=== PATIENT | male | born 1980 | race African-American/Black ===

== ENCOUNTER 2018-10-18 06:02 | Emergency (ER) | payer OTHER ==
[~2018-10-18] VITALS: Ht 193 cm; Wt 88.5 kg
[2018-10-18 06:18] VITALS: BP_SYST 148
--- NOTE | 2018-10-18 06:30 | NUR ---
Patient to ER bed 8 to gown for evaluation. Side rails up.
--- NOTE | 2018-10-18 06:32 | NUR ---
Patient AOx4, presents to ER with complaint of SOB, chest tightness, wheezing, and cough since mid day yesterday. Patient states he feels that the SOB is triggering the cough. Patient medicated with an inhailer and was effective initially but now says he cant breathe. Patient has hx of asthma and has been told he is in early stages of COPD. Patient is a smoker. O2 sat 90% RA.
--- NOTE | 2018-10-18 06:42 | NUR ---
MIRIAM Alcantara at bedside for medical evaluation.
--- NOTE | 2018-10-18 06:53 | NUR ---
RT at bedside to administer breathing treatment.
[2018-10-18] MEDS ORDERED: LevALBUTEROL HCL 1.25 MG/0.5 ML *CONC.* VIAL.NEB (XOPENEX CONC.) INH ONE ×2 (07:00→07:30)
[2018-10-18] MEDS ORDERED: IPRATROPIUM BROM 0.5 MG/2.5 ML VIAL.NEB (ATROVENT) IH ONE (07:00)
[2018-10-18] MEDS ORDERED: PREDNISONE 20 MG TABLET PO ONE (07:00)
--- NOTE | 2018-10-18 07:25 | NUR ---
AT BEDSIDE AND RE-ASSESSED PATIENT. PATIENT SITTING UP ON BED. AA&Ox4. RESPIRATIONS EVEN AND UNLABORED. SPEAKING FULL SENTENCES. ALL LUNG HALL NOTED WITH EXPIRATORY WHEEZES. PT STATES, "I FEEL MUCH BETTER AFTER THE MEDICATIONS." DENIES OF ANY CHEST PAIN OR SOB. PT IN NO ACUTE DISTRESS. WILL CONTINUE TO MONITOR.
--- NOTE | 2018-10-18 07:35 | NUR ---
RT AT BEDSIDE ADMINISTERING BREATHING TREATMENT. PT TOLERATING WELL.
[2018-10-18 08:25] VITALS: BP_SYST 146
--- NOTE | 2018-10-18 08:25 | NUR ---
Patient given written and verbal discharge instructions and verbalizes understanding. ER MD discussed with patient the results and treatment provided. Patient in stable condition. ID arm band removed. Rx of PREDNISONE AND ALBUTEROL given. Patient educated on pain management and to follow up with PMD. Pain Scale 0/10. Opportunity for questions provided and answered. Medication side effect fact sheet provided. PATIENT IN NO ACUTE DISTRESS. NO SOB. NOTED WITH STEADY GAIT.
== END 2018-10-18 08:25 | disposition home or self-care (01) ==
LOC: SED 06:02
DX: J45.901 Unspecified asthma with (acute) exacerbation (principal)
CPT/HCPCS: 94640; 99284; J7512; J7612

== ENCOUNTER 2019-01-27 00:59 | Emergency (ER) | payer OTHER ==
[~2019-01-27] VITALS: Ht 193 cm; Wt 88.5 kg
--- NOTE | 2019-01-27 01:00 | NUR ---
Patient to ER bed 8 to gown for evaluation. Side rails up.
[2019-01-27 01:15] VITALS: BP_SYST 163
--- NOTE | 2019-01-27 01:15 | NUR ---
Pt is a 38 y/o male w/ hx of asthma and COPD who comes into the ER for SOB w/ chest tightness, wheezing, and ocassional cough that he said started this morning. Pt states he tried to use his albuterol inhaler and nebulizer but he did not get any relief from it. Pt also states that he's requesting a refill for both his medications. Pt doesn't verbalize any other needs at this time and denies any fever, chills, chest pain, sore throat, or n/v/d. Will continue to monitor pt.
--- NOTE | 2019-01-27 01:23 | NUR ---
ER at bedside examining patient.
[2019-01-27] MEDS ORDERED: methylPREDNISolone SOD SUCC/PF 62.5 MG/ML VIAL IVP ONE (01:30)
[2019-01-27] MEDS ORDERED: IPRATROPIUM/ALBUTEROL SULFATE 3 ML AMPUL.NEB (DUONEB) INH ONE (01:30)
[2019-01-27] MEDS ORDERED: methylPREDNISolone SOD SUCC/PF 62.5 MG/ML VIAL IM ONE (02:00)
[2019-01-27 02:30] VITALS: BP_SYST 163
--- NOTE | 2019-01-27 02:30 | NUR ---
Patient given written and verbal discharge instructions and verbalizes understanding. ER MD Dr. Diamond discussed with patient the results and treatment provided. Patient in stable condition. ID arm band removed. IV catheter removed intact and dressing applied, no active bleeding. Rx of albuterol and predisone given. Patient educated on pain management and to follow up with PMD. Pain Scale 0/10. Opportunity for questions provided and answered. Medication side effect fact sheet provided.
== END 2019-01-27 02:30 | disposition home or self-care (01) ==
LOC: SED 00:59
DX: J45.901 Unspecified asthma with (acute) exacerbation (principal); J44.9 Chronic obstructive pulmonary disease, unspecified; R03.0 Elevated blood-pressure reading, without diagnosis of hypertension
CPT/HCPCS: 71045; 96372; 99283; J2930; J7620

== ENCOUNTER 2019-03-23 20:49 | Emergency (ER) | payer OTHER ==
[~2019-03-23] VITALS: Ht 193 cm; Wt 81.6 kg
[2019-03-23 20:52] VITALS: BP_SYST 163
[2019-03-23] MEDS ORDERED: IPRATROPIUM/ALBUTEROL SULFATE 3 ML AMPUL.NEB (DUONEB) INH ONE (21:00)
[2019-03-23] MEDS ORDERED: methylPREDNISolone SOD SUCC/PF 62.5 MG/ML VIAL IVP ONE (21:00)
[2019-03-23] MEDS ORDERED: IPRATROPIUM/ALBUTEROL SULFATE 3 ML AMPUL.NEB (DUONEB) ONE (21:13)
[2019-03-23 21:24] LABS: BASOPHILS # (AUTO) 0.1 K/uL (0.0-0.2); BASOPHILS % (AUTO) 1.2 % (0.0-2.0); EOSINOPHILS # (AUTO) 1.3 K/uL (0.0-0.4); EOSINOPHILS % (AUTO) 13.8 % (0.0-4.0); HEMATOCRIT 45.9 % (36-54); HEMOGLOBIN 15.5 g/dL (14.0-18.0); LYMPHOCYTES # (AUTO) 2.8 K/uL (1.0-5.5); LYMPHOCYTES % (AUTO) 29.6 % (20.5-51.5); MEAN CORPUSCULAR HEMOGLOBIN 31 pg (27-31); MEAN CORPUSCULAR HGB CONC 34 % (32-36); MEAN CORPUSCULAR VOLUME 91 fL (79.0-98.0); MONOCYTES # (AUTO) 0.9 K/uL (0.0-1.0); MONOCYTES % (AUTO) 9.1 % (1.7-9.3); NEUTROPHILS # (AUTO) 4.4 K/uL (1.8-7.7); NEUTROPHILS % (AUTO) 46.3 % (40.0-70.0); PLATELET COUNT (AUTO) 289 K/uL (130-430); RED BLOOD CELL COUNT(AUTO) 5.06 MIL/uL (4.2-6.2); RED CELL DISTRIBUTION WIDTH 12.8 % (9.0-15.0); WHITE BLOOD COUNT (AUTO) 9.5 K/uL (4.8-10.8)
[2019-03-23 21:35] LABS: CALCIUM 8.9 mg/dL (8.4-11.0); CREATININE 1.17 mg/dL (0.55-1.30); POTASSIUM 3.7 mmol/L (3.5-5.1)
[2019-03-23 21:42] LABS: ALBUMIN 3.4 g/dL (3.4-4.8); TOTAL BILIRUBIN 0.5 mg/dL (0.0-1.0)
[2019-03-23 23:18] VITALS: BP_SYST 140
== END 2019-03-23 23:17 | disposition home or self-care (01) ==
LOC: SED 20:49
DX: J45.901 Unspecified asthma with (acute) exacerbation (principal)
CPT/HCPCS: 36415; 71045; 80053; 85025; 94640; 96374; 99284; J2930; J7620

== ENCOUNTER 2019-11-10 03:15 | Inpatient (IN) | payer OTHER ==
[~2019-11-10] VITALS: Ht 193 cm; Wt 84.8 kg
--- NOTE | 2019-11-10 03:15 | NUR ---
Placed in room 6 . Placed on secured entrance monitor, blood pressure machine and pulse oximeter. To gown for exam. Side rails up.
[2019-11-10 03:17] VITALS: BP_SYST 168
--- NOTE | 2019-11-10 03:49 | NUR ---
# 2 gauge angiocath placed to LEFT AC. Use of asceptic technique. Opsite placed over site. Blood return noted. Blood for lab drawn from site. Flushed with 10 cc of normal saline. No evidence of infiltration noted. Patient tolerated well. Addendum: 11/10/19 at 0644 by SDEDPR # 20
--- NOTE | 2019-11-10 03:50 | NUR ---
ER at bedside examining patient.
[2019-11-10] MEDS ORDERED: IPRATROPIUM BROM 0.5 MG/2.5 ML VIAL.NEB (ATROVENT) INH ONE (04:00)
[2019-11-10] MEDS ORDERED: PREDNISONE 20 MG TABLET PO ONE (04:00)
[2019-11-10] MEDS ORDERED: ALBUTEROL SULFATE 0.083% 2.5 MG/3 ML VIAL.NEB INH ONE ×2 (04:00→05:45)
[2019-11-10] MEDS ORDERED: MAGNESIUM SULFATE 50 ML IV ONE (04:15)
[2019-11-10] MEDS ORDERED: methylPREDNISolone SOD SUCC/PF 62.5 MG/ML VIAL IVP ONE (04:15)
--- NOTE | 2019-11-10 04:57 | NUR ---
PT STS FEELING BETTER.
--- NOTE | 2019-11-10 05:20 | NUR ---
NOTED PT STILL WHEEZING AND USING ACCESS MUSCLE.
--- NOTE | 2019-11-10 05:25 | NUR ---
DR GUZMAN RE-EVAL PT AT THE BEDSIDE.
[2019-11-10] MEDS ORDERED: ALBU8.5H8 INH ×2 (05:31→05:53)
--- NOTE | 2019-11-10 05:45 | NUR ---
Leon mccall in [facility] - 11/10/19 at 0554 by SDEDPR PT PLACED ON BIPAP BY RT PER DR GUZMAN.
[2019-11-10] MEDS ORDERED: IPRA4AER INH (05:53)
[2019-11-10] MEDS ORDERED: BUDE0.25 IH (05:53)
--- NOTE | 2019-11-10 05:54 | NUR ---
RT AT THE BEDSIDE FOR IVAN ESPOSITO.
--- NOTE | 2019-11-10 05:57 | NUR ---
Patient will be admitted to care of Dr. Archuleta. Admitted to Telemetry unit. Will go to room 108 C. Belongings list completed. Complete and up to date summary report printed. SBAR report to be given at bedside with opportunity for questions.
--- NOTE | 2019-11-10 05:58 | NUR ---
Transfer to Telemetry via ACLS protocol. Licensed nurse present. IV present no signs or symptoms of infiltration.
[2019-11-10] MEDS: methylPREDNISolone SOD SUCC/PF 62.5 MG/ML VIAL IVP SCH ×3 (06:00→22:05)
--- NOTE | 2019-11-10 06:07 | NUR ---
ADMIT NOTE Received pt from ER to the floor with a diagnosis of copd exacerbation. Admission process initiated. patient oriented to pain management, safety and call light-teach back done.
[2019-11-10 06:24] VITALS: BP_SYST 135
--- NOTE | 2019-11-10 06:25 | NUR ---
ADMITTED A 39 YEAR OLD MALE WHO WAS BROUGHT IN FROM THE ER WITH AN ADMITTING DIAGNOSIS OF COPD EXACERBATION UNDER THE SERVICE OF . PLACED IN BED 108-C. PT.IS ALERT,ORIENTED,AMBULATORY. AFEBRILE, NOT IN ACUTE DISTRESS. VERBALIZED RELIEF OF SOB. WITH HEPLOCK TO THE LEFT AC. INTACT. SAO2=99% ON RA. SINUS RHYTHM AT 90'S/MINUTE ON THE MONITOR. VS STABLE, WILL CONTINUE TO MONITOR. NEEDS ATTENDED.
[2019-11-10 06:31] LABS: BASOPHILS # (AUTO) 0.1 K/uL (0.0-0.2); BASOPHILS % (AUTO) 1.1 % (0.0-2.0); EOSINOPHILS # (AUTO) 0.7 K/uL (0.0-0.4); EOSINOPHILS % (AUTO) 7.9 % (0.0-4.0); HEMATOCRIT 44.3 % (36-54); HEMOGLOBIN 15.2 g/dL (14.0-18.0); LYMPHOCYTES # (AUTO) 1.1 K/uL (1.0-5.5); LYMPHOCYTES % (AUTO) 11.7 % (20.5-51.5); MEAN CORPUSCULAR HEMOGLOBIN 32 pg (27-31); MEAN CORPUSCULAR HGB CONC 34 % (32-36); MEAN CORPUSCULAR VOLUME 93 fL (79.0-98.0); MONOCYTES # (AUTO) 0.3 K/uL (0.0-1.0); MONOCYTES % (AUTO) 3.8 % (1.7-9.3); NEUTROPHILS # (AUTO) 6.8 K/uL (1.8-7.7); NEUTROPHILS % (AUTO) 75.5 % (40.0-70.0); PLATELET COUNT (AUTO) 222 K/uL (130-430); RED BLOOD CELL COUNT(AUTO) 4.79 MIL/uL (4.2-6.2); RED CELL DISTRIBUTION WIDTH 13.3 % (9.0-15.0)
[2019-11-10 06:34] LABS: CALCIUM 8.8 mg/dL (8.4-11.0); CREATININE 1.1 mg/dL (0.55-1.30); POTASSIUM 4.3 mmol/L (3.5-5.1)
--- NOTE | 2019-11-10 07:10 | NUR ---
ENDORSED CARE TO SHEELA RN STABLE.
[2019-11-10 07:45] VITALS: BP_SYST 124
--- NOTE | 2019-11-10 07:45 | NUR ---
INITIAL ROUNDS Received pt AAOx4, no s/s resp distress, no c/o pain or discomfort. Plan of care for the day reviewed with pt-pt verbalized his understanding. Pain management, disease process, smoking cessation, skin and safety discussed-teach back done. Vall light within reach.
[2019-11-10] MEDS: IPRATROPIUM/ALBUTEROL SULFATE 3 ML AMPUL.NEB (DUONEB) INH SCH ×5 (07:58→23:00)
[2019-11-10 10:57] VITALS: BP_SYST 124
--- NOTE | 2019-11-10 11:25 | NUR ---
CONSULTATION PAGED/CALLED Reason for Consultation: [] COPD Person Who was Notified: [] LEFT A VOICE MESSAGE Consulting Physician: [] DR FORD Pile Operator Specialty: [] PULMO Ordering Physician: [] DR JOSEPH Addendum: 11/10/19 at [address]/ PERSON NOTIFIED: BAILEE RETURNED THE CALL
--- NOTE | 2019-11-10 12:45 | NUR ---
ROUNDS/MD Pt sitting up in bed with no s/s resp distress, no c/o pain or discomfort. Rounded with Dr. Archuleta, orders given for Levaquin-awaiting pharmacy to bring the medication. Needs met, call light within reach.
[2019-11-10] MEDS: LEVOFLOXACIN 500 MG/D5W 100 ML IV SCH (14:35)
[2019-11-10 16:35] VITALS: BP_SYST 122
--- NOTE | 2019-11-10 18:47 | NUR ---
CLOSING NOTE Pt sitting up in bed watching television with no s/s resp distress, no c/o shortness of breath, no c/o pain or discomfort. Needs met, call light within reach.
--- NOTE | 2019-11-10 19:30 | NUR ---
CHANGE OF SHIFT; pt. awake, alert ,getting his breathing treatment, RT at bedside. pt. with visitor. no shortness of breath. on sitting position. call light at bedside. will reassess later.
[2019-11-10] MEDS: BUDESONIDE 0.5 MG/2 ML AMPUL.NEB INH SCH (19:45)
--- NOTE | 2019-11-10 20:00 | NUR ---
NOTES: pt. on room air. VS checked, BP slightly high , will recheck again later. on ekg monitor and shows sinus rhythm. moves all extremities. IV lock on left ac. instructed to call if help needed and verbalized understanding. wants door closed.
[2019-11-10 20:45] VITALS: BP_SYST 153
--- NOTE | 2019-11-10 22:15 | NUR ---
NOTES: pt. remains awake talking to his cell phone. due medication given as scheduled. no complaints noted.
--- NOTE | 2019-11-11 00:01 | NUR ---
NOTES: pt. tv still on, condition unchanged.
[2019-11-11 01:30] VITALS: BP_SYST 140
--- NOTE | 2019-11-11 01:30 | NUR ---
NOTES: pt. accidentally push the nurse button, checked and was asleep, no complaints noted. repositioned self for comfort.
[2019-11-11] MEDS: IPRATROPIUM/ALBUTEROL SULFATE 3 ML AMPUL.NEB (DUONEB) INH SCH ×4 (03:50→15:11)
--- NOTE | 2019-11-11 04:00 | NUR ---
NOTES: pt. been sleeping. no acute distress. cardiac pattern been sinus rhythm. call light within reach.
--- NOTE | 2019-11-11 06:00 | NUR ---
NOTES: pt. awakened for medication. no complaints noted. IV lock [patent and flushing good.
[2019-11-11] MEDS: methylPREDNISolone SOD SUCC/PF 62.5 MG/ML VIAL IVP SCH ×2 (06:19→14:44)
--- NOTE | 2019-11-11 06:45 | NUR ---
CLOSING NOTES; pt. went back to sleep. needs attended. no shortness of breath. due breathing treatment @ 0700. for further observation. call light within reach.
[2019-11-11] MEDS: BUDESONIDE 0.5 MG/2 ML AMPUL.NEB INH SCH (07:04)
[2019-11-11 07:23] LABS: BASOPHILS % (AUTO) 0.2 % (0.0-2.0); HEMATOCRIT 49.3 % (36-54); HEMOGLOBIN 16.7 g/dL (14.0-18.0); LYMPHOCYTES # (AUTO) 0.8 K/uL (1.0-5.5); LYMPHOCYTES % (AUTO) 5.4 % (20.5-51.5); MEAN CORPUSCULAR HEMOGLOBIN 32 pg (27-31); MEAN CORPUSCULAR HGB CONC 34 % (32-36); MEAN CORPUSCULAR VOLUME 93 fL (79.0-98.0); MONOCYTES # (AUTO) 0.5 K/uL (0.0-1.0); MONOCYTES % (AUTO) 3.8 % (1.7-9.3); NEUTROPHILS # (AUTO) 12.6 K/uL (1.8-7.7); NEUTROPHILS % (AUTO) 90.6 % (40.0-70.0); PLATELET COUNT (AUTO) 245 K/uL (130-430); RED BLOOD CELL COUNT(AUTO) 5.29 MIL/uL (4.2-6.2); RED CELL DISTRIBUTION WIDTH 13.4 % (9.0-15.0); WHITE BLOOD COUNT (AUTO) 13.9 K/uL (4.8-10.8)
[2019-11-11 07:34] LABS: ALBUMIN 3.9 g/dL (3.4-4.8); CREATININE 0.92 mg/dL (0.55-1.30); POTASSIUM 4.3 mmol/L (3.5-5.1); TOTAL BILIRUBIN 0.9 mg/dL (0.0-1.0)
[2019-11-11 08:00] VITALS: BP_SYST 162
[2019-11-11] MEDS: LEVOFLOXACIN 500 MG/D5W 100 ML IV SCH (08:44)
[2019-11-11 12:00] VITALS: BP_SYST 146
[2019-11-11] MEDS ORDERED: DOXY100T2 PO (14:55)
[2019-11-11] MEDS ORDERED: VITD2000 PO (15:00)
[2019-11-11] MEDS ORDERED: ATOR20TA64 PO (15:00)
[2019-11-11] MEDS ORDERED: LOSA50TA3 PO (15:00)
[2019-11-11 16:07] VITALS: BP_SYST 148
--- NOTE | 2019-11-11 16:55 | NUR ---
Patient received written RX's from attending MD.and given education on smoking cessation and information on new medications. patient given opportunity to ask questions and denies additional questions at this time. He ambulated to exit per patient request with escort. He denies dizziness, blurry vision, chest pain at this time.
== END 2019-11-11 16:50 | disposition home or self-care (01) | DRG 192 ==
LOC: SED 03:15 → STU 05:33
PROVIDERS: ADMIT Internal Medicine; ATTEND Internal Medicine
DX: J44.1 Chronic obstructive pulmonary disease with (acute) exacerbation (principal); J44.0 Chronic obstructive pulmonary disease with (acute) lower respiratory infection; Z87.09 Personal history of other diseases of the respiratory system; J20.9 Acute bronchitis, unspecified; F17.210 Nicotine dependence, cigarettes, uncomplicated; D72.1 Eosinophilia; E78.5 Hyperlipidemia, unspecified; I10 Essential (primary) hypertension; Z79.899 Other long term (current) drug therapy
CPT/HCPCS: 36415; 71045; 80048; 80053; 80061; 82306; 82785; 85025; 94640; 94760; 96365; 96375; 99285; G0378; J1956; J2930; J3475; J7613; J7620; J7626

== ENCOUNTER 2019-11-15 19:58 | Emergency (ER) | payer OTHER ==
[~2019-11-15] VITALS: Ht 193 cm; Wt 90.7 kg
[~2019-11-15 19:58] MED LIST: ALBU8.5H8 INH; ATOR20TA64 PO; BUDE0.25 IH; DOXY100T2 PO; IPRA4AER INH; LOSA50TA3 PO; VITD2000 PO
[2019-11-15 20:00] VITALS: BP_SYST 136
--- NOTE | 2019-11-15 20:04 | NUR ---
Patient triaged and placed in waiting room. VSS and patient appears in no acute distress at this time. Accompanied by SELF, awaiting available bed, and MD notified of need for MSE.
[2019-11-15 21:50] LABS: BASOPHILS # (AUTO) 0.1 K/uL (0.0-0.2); BASOPHILS % (AUTO) 0.9 % (0.0-2.0); EOSINOPHILS # (AUTO) 1.1 K/uL (0.0-0.4); EOSINOPHILS % (AUTO) 8.6 % (0.0-4.0); HEMATOCRIT 42.1 % (36-54); HEMOGLOBIN 14.3 g/dL (14.0-18.0); LYMPHOCYTES # (AUTO) 2.1 K/uL (1.0-5.5); LYMPHOCYTES % (AUTO) 16.7 % (20.5-51.5); MEAN CORPUSCULAR HEMOGLOBIN 31 pg (27-31); MEAN CORPUSCULAR HGB CONC 34 % (32-36); MEAN CORPUSCULAR VOLUME 93 fL (79.0-98.0); MONOCYTES # (AUTO) 0.7 K/uL (0.0-1.0); MONOCYTES % (AUTO) 5.5 % (1.7-9.3); NEUTROPHILS # (AUTO) 8.7 K/uL (1.8-7.7); NEUTROPHILS % (AUTO) 68.3 % (40.0-70.0); PLATELET COUNT (AUTO) 215 K/uL (130-430); RED BLOOD CELL COUNT(AUTO) 4.55 MIL/uL (4.2-6.2); RED CELL DISTRIBUTION WIDTH 13.1 % (9.0-15.0); WHITE BLOOD COUNT (AUTO) 12.7 K/uL (4.8-10.8)
[2019-11-15 22:27] LABS: CALCIUM 8.2 mg/dL (8.4-11.0); CREATININE 1.24 mg/dL (0.55-1.30); POTASSIUM 3.2 mmol/L (3.5-5.1)
[2019-11-15 22:33] LABS: ALBUMIN 3.4 g/dL (3.4-4.8); TOTAL BILIRUBIN 0.4 mg/dL (0.0-1.0)
--- NOTE | 2019-11-15 23:07 | NUR ---
Patient to ER bed 08 to gown for evaluation. Side rails up. Report given to ROGER Field.
--- NOTE | 2019-11-15 23:10 | NUR ---
Patient came to the ER with complaint of abdominal discomfort. Patient advised he had an episode of emesis at 2200. Patient advised that he had taken an advil this morning and since then, his stomach has been upset. Patient not presenting any signs of acute distress.
[2019-11-15 23:59] LABS: BILIRUBIN,URINE NEGATIVE (NEGATIVE); BLOOD, URINE NEGATIVE (NEGATIVE); CLARITY/URINE CLEAR (CLEAR); COLOR,URINE YELLOW (YELLOW); GLUCOSE,URINE NEGATIVE (NEGATIVE); KETONES,URINE NEGATIVE (NEGATIVE); LEUKOCYTE ESTERASE ,URINE NEGATIVE (NEGATIVE); NITRITE, URINE NEGATIVE (NEGATIVE); PROTEIN URINE NEGATIVE (NEGATIVE); UROBILINOGEN,URINE 0.2 (0.2-1.0)
--- NOTE | 2019-11-16 | NUR ---
ER Dr. Krueger at bedside examining patient.
--- NOTE | 2019-11-16 00:25 | NUR ---
Patient given written and verbal discharge instructions and verbalizes understanding. ER MD discussed with patient the results and treatment provided. Patient in stable condition. IV catheter removed intact and dressing applied, no active bleeding. Rx of Pepcid given. Patient educated on pain management and to follow up with PMD. Pain Scale 0/10. Opportunity for questions provided and answered. Medication side effect fact sheet provided.
[2019-11-16 00:30] VITALS: BP_SYST 157
== END 2019-11-16 00:25 | disposition home or self-care (01) ==
LOC: SED 19:58
DX: R10.13 Epigastric pain (principal); Z79.899 Other long term (current) drug therapy
CPT/HCPCS: 36415; 80053; 81003; 83690-TC; 85025; 99283

== ENCOUNTER 2019-12-09 03:25 | Emergency (ER) | payer OTHER ==
[~2019-12-09] VITALS: Ht 193 cm; Wt 90.7 kg
[2019-12-09 03:25] VITALS: BP_SYST 134
--- NOTE | 2019-12-09 03:25 | NUR ---
Patient to ER bed 6 to gown for evaluation. Side rails up.
--- NOTE | 2019-12-09 03:30 | NUR ---
Pt came to the ED for asthma exacerbation. Reports that for about a week he noticed he was getting progressively worse. Upon auscultation pt has exiratory wheezy and increased work of breathing. Denies n/v/d or fever. Denies chest pain. No other complaints/injuries noted. Will cont. to monitor.
--- NOTE | 2019-12-09 03:33 | NUR ---
ER at bedside examining patient.
[2019-12-09] MEDS ORDERED: IPRATROPIUM/ALBUTEROL SULFATE 3 ML AMPUL.NEB (DUONEB) INH ONE (04:00)
[2019-12-09] MEDS ORDERED: methylPREDNISolone SOD SUCC/PF 62.5 MG/ML VIAL IM ONE (04:00)
--- NOTE | 2019-12-09 04:10 | NUR ---
Pt medicated with solu-medrol IM per MD order. Tolerated well. WIll cont. to monitor. Pt states, "I feel better." Will cont. to monitor.
--- NOTE | 2019-12-09 06:43 | NUR ---
Pt sleeping, no signs of acute distress. Will cont. to monitor.
[2019-12-09 07:16] VITALS: BP_SYST 134
--- NOTE | 2019-12-09 07:16 | NUR ---
Patient given written and verbal discharge instructions and verbalizes understanding. ER MD Dr. Diamond discussed with patient the results and treatment provided. Patient in stable condition. ID arm band removed. Rx of predisone and albuterol given. Patient educated on pain management and to follow up with PMD. Pain Scale 0/10. Opportunity for questions provided and answered. Medication side effect fact sheet provided.
== END 2019-12-09 07:16 | disposition home or self-care (01) ==
LOC: SED 03:25
DX: J45.909 Unspecified asthma, uncomplicated (principal); Z79.899 Other long term (current) drug therapy
CPT/HCPCS: 71045; 96372; 99283; J2930; J7620

== ENCOUNTER 2020-01-01 07:33 | Emergency (ER) | payer OTHER ==
[~2020-01-01] VITALS: Ht 193 cm; Wt 88.5 kg
[2020-01-01 07:33] VITALS: BP_SYST 147
--- NOTE | 2020-01-01 07:33 | NUR ---
Patient to ER bed 1 to gown for evaluation. Side rails up. Report given to ROGER Wang.
--- NOTE | 2020-01-01 07:35 | NUR ---
ER Dr. Napier at bedside examining patient.
--- NOTE | 2020-01-01 07:40 | NUR ---
Patient presents to ER C/O SOB Patient A&Ox4, ambulatory to ER, afebrile, skin pink and warm, denies pain, denies n/v/d, respirations equal bilat, no distress noted at this time, placed on pulse-ox monitor and pvc monitor upon arrival to ER bed 1. PT states he had a asthma attack last night while working, pt states "I tried to work through it". Patient reports HX of COPD & Asthma
[2020-01-01] MEDS ORDERED: IPRATROPIUM/ALBUTEROL SULFATE 3 ML AMPUL.NEB (DUONEB) INH ONE ×2 (07:45→08:30)
[2020-01-01] MEDS ORDERED: PREDNISONE 20 MG TABLET PO ONE (08:15)
--- NOTE | 2020-01-01 08:30 | NUR ---
Respiratory called to bedside for second treatment.
--- NOTE | 2020-01-01 09:05 | NUR ---
PEPE HOSE SUSPENDER CUTTER RENTERIA AT BEDSIDE
[2020-01-01 09:30] VITALS: BP_SYST 148
--- NOTE | 2020-01-01 09:30 | NUR ---
Patient given written and verbal discharge instructions and verbalizes understanding. ER MD discussed with patient the results and treatment provided. Patient in stable condition. ID arm band removed. Rx of Albuterol, Atrovent, Prednisone given. Patient educated on pain management and to follow up with PMD. Pain Scale0/10 . Opportunity for questions provided and answered. Medication side effect fact sheet provided.
== END 2020-01-01 09:30 | disposition home or self-care (01) ==
LOC: SED 07:33
DX: J45.901 Unspecified asthma with (acute) exacerbation (principal); R03.0 Elevated blood-pressure reading, without diagnosis of hypertension; J44.9 Chronic obstructive pulmonary disease, unspecified; F17.200 Nicotine dependence, unspecified, uncomplicated; Z79.899 Other long term (current) drug therapy; Z71.6 Tobacco abuse counseling
CPT/HCPCS: 94640; 99283; J7512; J7620

== ENCOUNTER 2020-01-15 08:06 | Emergency (ER) | payer OTHER ==
[~2020-01-15] VITALS: Ht 193 cm; Wt 88.5 kg
--- NOTE | 2020-01-15 08:09 | NUR ---
Note stefany in ED - 01/15/20 at 0828 by [email or web address] Patient to bed to for evaluation. Side rails up.
[2020-01-15 08:11] VITALS: BP_SYST 131
[2020-01-15] MEDS ORDERED: PREDNISONE 20 MG TABLET PO ONE (08:15)
[2020-01-15] MEDS ORDERED: ALBUTEROL SULFATE 0.083% 2.5 MG/3 ML VIAL.NEB INH ONE (08:15)
[2020-01-15] MEDS ORDERED: IPRATROPIUM BROM 0.5 MG/2.5 ML VIAL.NEB (ATROVENT) INH ONE (08:15)
--- NOTE | 2020-01-15 08:15 | NUR ---
Patient arrived in the ED c/o shortness of breath and cough that started last night. Denied any chest pain. Denied any fevers, nausea, vomiting, or chills. Patient is alert and oriented x4, wheezing noted, speaking in full sentences, ambulating with a steady gait. VSS, pain level 2/10. Informed of wait time. Instructed to notify ED staff for any changes in condition or worsening of symptoms. Patient verbalized understanding.
--- NOTE | 2020-01-15 08:15 | NUR ---
RT at bedside administering inhalation treatment as ordered by Dr. Gill. Patient tolerated the medication well.
--- NOTE | 2020-01-15 08:15 | NUR ---
Patient to ER bed 6 to gown for evaluation. Side rails up. Report given to Coby DURAN.
--- NOTE | 2020-01-15 08:17 | NUR ---
ER Dr. Gill at bedside examining patient.
--- NOTE | 2020-01-15 08:23 | NUR ---
X-ray done at bedside as ordered by Dr. Gill. Patient tolerated the procedure well.
--- NOTE | 2020-01-15 08:38 | NUR ---
Administered Prednisone as ordered by Dr. Gill. Patient tolerated the medication well. See eMAR for details.
[2020-01-15 09:26] VITALS: BP_SYST 112
--- NOTE | 2020-01-15 09:27 | NUR ---
Patient given written and verbal discharge instructions and verbalizes understanding. ER MD discussed with patient the results and treatment provided. Patient in stable condition. ID arm band removed. Rx of Prednisone and Ibuprofen given. Patient educated on pain management and to follow up with PMD. Pain Scale 0/10.
== END 2020-01-15 09:26 | disposition home or self-care (01) ==
LOC: SED 08:06
DX: J45.909 Unspecified asthma, uncomplicated (principal); Z79.899 Other long term (current) drug therapy
CPT/HCPCS: 71045; 94640; 99283; J7512; J7613

== ENCOUNTER 2020-08-23 07:37 | Emergency (ER) | payer MEDICAID, OTHER ==
[~2020-08-23] VITALS: Ht 193 cm; Wt 88.5 kg
[2020-08-23 07:46] VITALS: BP_SYST 163
[2020-08-23] MEDS: ALBUTEROL SULFATE 0.083% 2.5 MG/3 ML VIAL.NEB INH ONE (08:26)
[2020-08-23] MEDS: IPRATROPIUM/ALBUTEROL SULFATE 3 ML AMPUL.NEB (DUONEB) INH ONE (08:27)
[2020-08-23] MEDS: methylPREDNISolone SOD SUCC/PF 62.5 MG/ML VIAL IVP ONE (08:30)
[2020-08-23] MEDS: NACL 0.9% 1,000 ML IV ONE (08:33)
[2020-08-23] MEDS: MAGNESIUM SULFATE 50 ML IV ONE (08:34)
[2020-08-23 08:37] LABS: BASOPHILS # (AUTO) 0.1 K/uL (0.0-0.2); BASOPHILS % (AUTO) 1.1 % (0.0-2.0); EOSINOPHILS # (AUTO) 1.1 K/uL (0.0-0.4); EOSINOPHILS % (AUTO) 12.4 % (0.0-4.0); HEMOGLOBIN 15.3 g/dL (14.0-18.0); LYMPHOCYTES # (AUTO) 1.6 K/uL (1.0-5.5); LYMPHOCYTES % (AUTO) 17.2 % (20.5-51.5); MEAN CORPUSCULAR HEMOGLOBIN 32 pg (27-31); MEAN CORPUSCULAR HGB CONC 34 % (32-36); MEAN CORPUSCULAR VOLUME 93 fL (79.0-98.0); MONOCYTES # (AUTO) 0.6 K/uL (0.0-1.0); MONOCYTES % (AUTO) 6.8 % (1.7-9.3); NEUTROPHILS # (AUTO) 5.7 K/uL (1.8-7.7); NEUTROPHILS % (AUTO) 62.5 % (40.0-70.0); PLATELET COUNT (AUTO) 261 K/uL (130-430); RED BLOOD CELL COUNT(AUTO) 4.81 MIL/uL (4.2-6.2)
[2020-08-23 08:47] LABS: CALCIUM 8.7 mg/dL (8.4-11.0); CREATININE 1.68 mg/dL (0.55-1.30)
[2020-08-23 08:53] LABS: ALBUMIN 3.7 g/dL (3.4-4.8); TOTAL BILIRUBIN 0.6 mg/dL (0.0-1.0)
[2020-08-23 10:57] VITALS: BP_SYST 148
== END 2020-08-23 11:01 | disposition home or self-care (01) ==
LOC: SED 07:37
DX: J44.1 Chronic obstructive pulmonary disease with (acute) exacerbation (principal); F17.200 Nicotine dependence, unspecified, uncomplicated; Z79.899 Other long term (current) drug therapy
CPT/HCPCS: 36415; 36600; 71045; 80053; 82803; 85025; 87040; 94640; 96365; 96375; 99284; J2930; J3475; J7030; J7613

== ENCOUNTER 2020-09-03 06:50 | Emergency (ER) | payer OTHER, MEDICAID ==
[~2020-09-03] VITALS: Ht 193 cm; Wt 88.5 kg
[2020-09-03 06:50] VITALS: BP_SYST 145
--- NOTE | 2020-09-03 07:05 | NUR ---
ER Dr. Alcantara at bedside examining patient.
[2020-09-03] MEDS ORDERED: predniSONE 20 MG TABLET PO ONE (07:15)
[2020-09-03] MEDS ORDERED: LevALBUTEROL HCL 1.25 MG/0.5 ML *CONC.* VIAL.NEB (XOPENEX CONC.) INH ONE ×3 (07:15→08:15)
[2020-09-03] MEDS ORDERED: IPRATROPIUM BROM 0.5 MG/2.5 ML VIAL.NEB (ATROVENT) INH ONE ×3 (07:15→08:23)
--- NOTE | 2020-09-03 07:19 | NUR ---
Pt in [facility] with side rails up. C/O sob and coughing. oxygen saturation is 95%, on Room air.
--- NOTE | 2020-09-03 07:48 | NUR ---
Pt sitting up in [facility]. No acute distress noted.
--- NOTE | 2020-09-03 08:33 | NUR ---
pt stated he is breathing better and wants to return home.
[2020-09-03 08:34] VITALS: BP_SYST 148
--- NOTE | 2020-09-03 08:35 | NUR ---
Patient given written and verbal discharge instructions and verbalizes understanding. ER MD discussed with patient the results and treatment provided. Patient in stable condition. ID arm band removed. Rx of Prednisone and Albuterol given. Patient educated on pain management and to follow up with PMD. Pain Scale 0/10. Opportunity for questions provided and answered. Medication side effect fact sheet provided.
== END 2020-09-03 08:35 | disposition home or self-care (01) ==
LOC: SED 06:50
DX: J45.901 Unspecified asthma with (acute) exacerbation (principal); Z79.899 Other long term (current) drug therapy; Z87.891 Personal history of nicotine dependence
CPT/HCPCS: 94640; 99283; J7512; J7612

== ENCOUNTER 2020-09-22 01:16 | Emergency (ER) | payer MEDICAID, OTHER ==
[~2020-09-22] VITALS: Ht 193 cm; Wt 88.5 kg
[2020-09-22 01:27] VITALS: BP_SYST 139
[2020-09-22 02:00] LABS: BASOPHILS # (AUTO) 0.1 K/uL (0.0-0.2); BASOPHILS % (AUTO) 0.8 % (0.0-2.0); EOSINOPHILS # (AUTO) 0.4 K/uL (0.0-0.4); EOSINOPHILS % (AUTO) 5.2 % (0.0-4.0); HEMATOCRIT 40.7 % (36-54); HEMOGLOBIN 13.8 g/dL (14.0-18.0); LYMPHOCYTES # (AUTO) 2.3 K/uL (1.0-5.5); LYMPHOCYTES % (AUTO) 27.4 % (20.5-51.5); MEAN CORPUSCULAR HEMOGLOBIN 32 pg (27-31); MEAN CORPUSCULAR HGB CONC 34 % (32-36); MEAN CORPUSCULAR VOLUME 94 fL (79.0-98.0); MONOCYTES # (AUTO) 0.7 K/uL (0.0-1.0); MONOCYTES % (AUTO) 8.2 % (1.7-9.3); NEUTROPHILS % (AUTO) 58.4 % (40.0-70.0); PLATELET COUNT (AUTO) 259 K/uL (130-430); RED BLOOD CELL COUNT(AUTO) 4.35 MIL/uL (4.2-6.2); RED CELL DISTRIBUTION WIDTH 12.6 % (9.0-15.0); WHITE BLOOD COUNT (AUTO) 8.6 K/uL (4.8-10.8)
[2020-09-22 02:31] LABS: CALCIUM 8.1 mg/dL (8.4-11.0); CREATININE 1.61 mg/dL (0.55-1.30); POTASSIUM 3.7 mmol/L (3.5-5.1)
[2020-09-22 02:37] LABS: ALBUMIN 3.4 g/dL (3.4-4.8); TOTAL BILIRUBIN 0.4 mg/dL (0.0-1.0)
[2020-09-22 02:59] LABS: CKMB RELATIVE INDEX 1.9 (0.0-2.9); CREATINE KINASE MB 10.6 ng/mL (0-3.6)
[2020-09-22 04:46] VITALS: BP_SYST 136
== END 2020-09-22 04:46 | disposition home or self-care (01) ==
LOC: SED 01:16
DX: R00.2 Palpitations (principal); N18.9 Chronic kidney disease, unspecified; J44.9 Chronic obstructive pulmonary disease, unspecified; Z79.899 Other long term (current) drug therapy
CPT/HCPCS: 36415; 71045; 80053; 82550-TC; 82553-TC; 83880; 84484; 85025; 93005; 99285

== ENCOUNTER 2020-10-11 05:05 | Emergency (ER) | payer OTHER, MEDICAID ==
[~2020-10-11] VITALS: Ht 193 cm; Wt 88.5 kg
[2020-10-11 05:11] VITALS: BP_SYST 161
--- NOTE | 2020-10-11 05:11 | NUR ---
Placed in room 3 . Placed on site monitor, blood pressure machine and pulse oximeter. To gown for exam. Side rails up. Report given to Shari DURAN.
--- NOTE | 2020-10-11 05:12 | NUR ---
Patient came to ER. C/O shortness of breath x today. Patient had shortness of breath today, Hx COPD and Asthma, used IH meds one hour ago, no relief. A/O,X4, oxygen sat 96% RA.
[2020-10-11] MEDS ORDERED: methylPREDNISolone SOD SUCC/PF 62.5 MG/ML VIAL IVP ONE (05:15)
[2020-10-11] MEDS ORDERED: IPRATROPIUM/ALBUTEROL SULFATE 3 ML AMPUL.NEB (DUONEB) INH ONE (05:15)
[2020-10-11] MEDS ORDERED: MAGNESIUM SULFATE 50 ML IV ONE (05:15)
--- NOTE | 2020-10-11 05:15 | NUR ---
ER at bedside examining patient.
--- NOTE | 2020-10-11 05:19 | NUR ---
RT at bedside for breathing treatment.
--- NOTE | 2020-10-11 05:23 | NUR ---
# 18 gauge angiocath placed to rt ac. Use of asceptic technique. Opsite placed over site. Blood return noted. Blood for lab drawn from site. Flushed with 10 cc of normal saline. No evidence of infiltration noted. Patient tolerated well.
[2020-10-11 05:29] LABS: BASOPHILS # (AUTO) 0.1 K/uL (0.0-0.2); BASOPHILS % (AUTO) 0.8 % (0.0-2.0); EOSINOPHILS # (AUTO) 0.8 K/uL (0.0-0.4); EOSINOPHILS % (AUTO) 10.1 % (0.0-4.0); HEMATOCRIT 44.5 % (36-54); HEMOGLOBIN 15.1 g/dL (14.0-18.0); LYMPHOCYTES # (AUTO) 1.8 K/uL (1.0-5.5); LYMPHOCYTES % (AUTO) 22.8 % (20.5-51.5); MEAN CORPUSCULAR HEMOGLOBIN 32 pg (27-31); MEAN CORPUSCULAR HGB CONC 34 % (32-36); MEAN CORPUSCULAR VOLUME 94 fL (79.0-98.0); MONOCYTES # (AUTO) 0.8 K/uL (0.0-1.0); MONOCYTES % (AUTO) 9.9 % (1.7-9.3); NEUTROPHILS # (AUTO) 4.4 K/uL (1.8-7.7); NEUTROPHILS % (AUTO) 56.4 % (40.0-70.0); PLATELET COUNT (AUTO) 258 K/uL (130-430); RED BLOOD CELL COUNT(AUTO) 4.74 MIL/uL (4.2-6.2); RED CELL DISTRIBUTION WIDTH 12.3 % (9.0-15.0); WHITE BLOOD COUNT (AUTO) 7.7 K/uL (4.8-10.8)
[2020-10-11 05:42] LABS: CALCIUM 8.5 mg/dL (8.4-11.0); CREATININE 1.59 mg/dL (0.55-1.30); POTASSIUM 4.1 mmol/L (3.5-5.1)
[2020-10-11 05:48] LABS: ALBUMIN 3.8 g/dL (3.4-4.8); TOTAL BILIRUBIN 0.5 mg/dL (0.0-1.0)
[2020-10-11 06:44] VITALS: BP_SYST 142
--- NOTE | 2020-10-11 06:44 | NUR ---
Patient given written and verbal discharge instructions and verbalizes understanding. ER MD discussed with patient the results and treatment provided. Patient in stable condition. ID arm band removed. IV catheter removed intact and dressing applied, no active bleeding. Rx of Lisinopril andPrednisone given. Patient educated on pain management and to follow up with PMD. Pain Scale 0/10. Opportunity for questions provided and answered. Medication side effect fact sheet provided.
== END 2020-10-11 06:44 | disposition home or self-care (01) ==
LOC: SED 05:05
DX: J44.1 Chronic obstructive pulmonary disease with (acute) exacerbation (principal); I10 Essential (primary) hypertension; J44.9 Chronic obstructive pulmonary disease, unspecified; N18.1 Chronic kidney disease, stage 1; Z79.899 Other long term (current) drug therapy
CPT/HCPCS: 36415; 80053; 83880; 84484; 85025; 93005; 94640; 96365; 96375; 99284; J2930; J3475

== ENCOUNTER 2020-10-20 04:37 | Emergency (ER) | payer OTHER, MEDICAID ==
[~2020-10-20] VITALS: Ht 193 cm; Wt 88.5 kg
[2020-10-20 04:40] VITALS: BP_SYST 155
--- NOTE | 2020-10-20 05:10 | NUR ---
Patient to ER bed 1 to gown for evaluation. Side rails up.
--- NOTE | 2020-10-20 05:11 | NUR ---
Patient came to ER. C/O shortness of breath x 3 days, . Patient had shortness of breath for 2-3 days, Hx COPD and Asthma. Patient had mid chest pain today, tightness.
--- NOTE | 2020-10-20 05:15 | NUR ---
ER Dr. Fajardo at bedside examining patient.
--- NOTE | 2020-10-20 05:30 | NUR ---
# 20 gauge angiocath placed to left ac. Use of asceptic technique. Opsite placed over site. Blood return noted. Blood for lab drawn from site. Flushed with 10 cc of normal saline. No evidence of infiltration noted. Patient tolerated well.
[2020-10-20] MEDS ORDERED: IPRATROPIUM/ALBUTEROL SULFATE 3 ML AMPUL.NEB (DUONEB) ONE (05:43)
[2020-10-20] MEDS ORDERED: IPRATROPIUM/ALBUTEROL SULFATE 3 ML AMPUL.NEB (DUONEB) INH ONE (05:45)
[2020-10-20] MEDS ORDERED: methylPREDNISolone SOD SUCC/PF 62.5 MG/ML VIAL IVP ONE (05:45)
[2020-10-20 05:47] LABS: RED BLOOD CELL COUNT(AUTO) 5.06 MIL/uL (4.2-6.2)
--- NOTE | 2020-10-20 05:49 | NUR ---
Swabs COVID-19 and send to lab.
--- NOTE | 2020-10-20 05:50 | NUR ---
X-ray at bedside.
[2020-10-20 05:54] LABS: BASOPHILS # (AUTO) 0.1 K/uL (0.0-0.2); BASOPHILS % (AUTO) 0.9 % (0.0-2.0); EOSINOPHILS % (AUTO) 12.2 % (0.0-4.0); HEMATOCRIT 47.1 % (36-54); HEMOGLOBIN 16.2 g/dL (14.0-18.0); LYMPHOCYTES # (AUTO) 2.2 K/uL (1.0-5.5); LYMPHOCYTES % (AUTO) 27.3 % (20.5-51.5); MEAN CORPUSCULAR HEMOGLOBIN 32 pg (27-31); MEAN CORPUSCULAR HGB CONC 35 % (32-36); MEAN CORPUSCULAR VOLUME 93 fL (79.0-98.0); MONOCYTES # (AUTO) 0.5 K/uL (0.0-1.0); MONOCYTES % (AUTO) 6.8 % (1.7-9.3); NEUTROPHILS # (AUTO) 4.2 K/uL (1.8-7.7); NEUTROPHILS % (AUTO) 52.8 % (40.0-70.0); PLATELET COUNT (AUTO) 286 K/uL (130-430); RED CELL DISTRIBUTION WIDTH 12.3 % (9.0-15.0)
--- NOTE | 2020-10-20 05:55 | NUR ---
CRITICAL LAB REPORTING - COVID POSITIVE. AWARE.
[2020-10-20 05:58] LABS: ANION GAP 8 (5-15); CALCIUM 8.9 mg/dL (8.4-11.0); CHLORIDE 101 mmol/L (98-107); CREATININE 1.66 mg/dL (0.55-1.30); GLUCOSE 82 mg/dL (70-99); SODIUM SERUM 134 mmol/L (136-145); UREA NITROGEN, BLOOD 18 mg/dL (8-21)
[2020-10-20 06:00] LABS: GFR AFRICAN AMERICAN 60 mL/min (>90)
[2020-10-20 06:07] LABS: ALANINE AMINOTRANSFERASE 46 U/L (12-78); ALBUMIN 3.9 g/dL (3.4-4.8); ASPARTATE AMINOTRANSFERASE 34 U/L (10-37); TOTAL BILIRUBIN 0.6 mg/dL (0.0-1.0)
[2020-10-20 08:00] VITALS: BP_SYST 132
--- NOTE | 2020-10-20 09:28 | NUR ---
Patient given written and verbal discharge instructions and verbalizes understanding. ER MD discussed with patient the results and treatment provided. Patient in stable condition. ID arm band removed. Rx of ALBUTEROL, PREDNISONE given. Patient educated on pain management and to follow up with PMD. Pain Scale 0/10 Opportunity for questions provided and answered. Medication side effect fact sheet provided.
== END 2020-10-20 09:28 | disposition home or self-care (01) ==
LOC: SED 04:37
DX: R07.89 Other chest pain (principal); J44.9 Chronic obstructive pulmonary disease, unspecified; Z79.899 Other long term (current) drug therapy; Z71.6 Tobacco abuse counseling; Z87.891 Personal history of nicotine dependence; Z20.828 Contact with and (suspected) exposure to other viral communicable diseases
CPT/HCPCS: 36415; 71045; 80053; 84484; 85025; 87426; 93005; 94640; 96374; 99285; J2930

== ENCOUNTER 2020-12-01 23:01 | Emergency (ER) | payer OTHER, MEDICAID ==
[~2020-12-01] VITALS: Ht 193 cm; Wt 90.7 kg
[2020-12-01 23:09] VITALS: BP_SYST 155
[2020-12-01] MEDS ORDERED: IPRATROPIUM/ALBUTEROL SULFATE 3 ML AMPUL.NEB (DUONEB) INH ONE (23:15)
[2020-12-01] MEDS ORDERED: IPRATROPIUM/ALBUTEROL SULFATE 3 ML AMPUL.NEB (DUONEB) ONE (23:32)
[2020-12-02] MEDS ORDERED: IPRATROPIUM/ALBUTEROL SULFATE 3 ML AMPUL.NEB (DUONEB) ONE (00:37)
[2020-12-02] MEDS ORDERED: methylPREDNISolone SOD SUCC/PF 62.5 MG/ML VIAL IVP ONE (00:45)
[2020-12-02] MEDS ORDERED: IPRATROPIUM/ALBUTEROL SULFATE 3 ML AMPUL.NEB (DUONEB) INH ONE ×2 (00:45)
[2020-12-02 03:10] VITALS: BP_SYST 155
== END 2020-12-02 03:10 | disposition home or self-care (01) ==
LOC: SED 23:01
DX: J44.1 Chronic obstructive pulmonary disease with (acute) exacerbation (principal); Z79.899 Other long term (current) drug therapy
CPT/HCPCS: 94640 ×2; 96374; 99284; J2930

== ENCOUNTER 2020-12-24 03:33 | Emergency (ER) | payer OTHER, MEDICAID ==
[~2020-12-24] VITALS: Ht 193 cm; Wt 88.5 kg
[2020-12-24 03:35] VITALS: BP_SYST 169
[2020-12-24] MEDS: IPRATROPIUM/ALBUTEROL SULFATE 3 ML AMPUL.NEB (DUONEB) INH ONE ×4 (04:14→04:54)
[2020-12-24] MEDS: predniSONE 20 MG TABLET PO ONE (04:16)
[2020-12-24] MEDS ORDERED: IPRATROPIUM/ALBUTEROL SULFATE 3 ML AMPUL.NEB (DUONEB) ONE (04:55)
[2020-12-24 05:27] VITALS: BP_SYST 119
== END 2020-12-24 05:27 | disposition home or self-care (01) ==
LOC: SED 03:33
DX: J45.901 Unspecified asthma with (acute) exacerbation (principal); Z79.899 Other long term (current) drug therapy; Z87.891 Personal history of nicotine dependence
CPT/HCPCS: 94640; 99284; J7512; 99283

== ENCOUNTER 2021-01-31 11:23 | Outpatient (CLI) | payer OTHER, MEDICAID ==
[2021-01-31 12:21] LABS: BASOPHILS # (AUTO) 0.1 K/uL (0.0-0.2); BASOPHILS % (AUTO) 0.8 % (0.0-2.0); EOSINOPHILS # (AUTO) 0.4 K/uL (0.0-0.4); EOSINOPHILS % (AUTO) 4.1 % (0.0-4.0); HEMATOCRIT 44.4 % (36-54); HEMOGLOBIN 14.7 g/dL (14.0-18.0); LYMPHOCYTES % (AUTO) 23.5 % (20.5-51.5); MEAN CORPUSCULAR HEMOGLOBIN 30 pg (27-31); MEAN CORPUSCULAR HGB CONC 33 % (32-36); MEAN CORPUSCULAR VOLUME 92 fL (79.0-98.0); MONOCYTES # (AUTO) 0.7 K/uL (0.0-1.0); MONOCYTES % (AUTO) 7.7 % (1.7-9.3); NEUTROPHILS # (AUTO) 5.6 K/uL (1.8-7.7); NEUTROPHILS % (AUTO) 63.9 % (40.0-70.0); PLATELET COUNT (AUTO) 303 K/uL (130-430); RED BLOOD CELL COUNT(AUTO) 4.85 MIL/uL (4.2-6.2); RED CELL DISTRIBUTION WIDTH 12.7 % (9.0-15.0); WHITE BLOOD COUNT (AUTO) 8.7 K/uL (4.8-10.8)
[2021-01-31 13:14] LABS: POTASSIUM 3.9 mmol/L (3.5-5.1)
[2021-01-31 13:15] LABS: ALBUMIN 3.9 g/dL (3.4-4.8); BILIRUBIN,URINE NEGATIVE (NEGATIVE); BLOOD, URINE NEGATIVE (NEGATIVE); CLARITY/URINE CLEAR (CLEAR); COLOR,URINE YELLOW (YELLOW); CREATININE 1.66 mg/dL (0.55-1.30); GLUCOSE,URINE NEGATIVE (NEGATIVE); KETONES,URINE NEGATIVE (NEGATIVE); LEUKOCYTE ESTERASE ,URINE NEGATIVE (NEGATIVE); NITRITE, URINE NEGATIVE (NEGATIVE); PROTEIN URINE NEGATIVE (NEGATIVE); THYROID STIMULATING HORMONE 0.48 uIu/mL (0.36-3.74); TOTAL BILIRUBIN 0.4 mg/dL (0.0-1.0); UROBILINOGEN,URINE 0.2 (0.2-1.0)
[2021-01-31 13:27] LABS: URIC ACID 5.5 mg/dL (2.4-7.0)
== END 2021-01-31 20:58 | disposition home or self-care (01) ==
LOC: SLB 11:23
PROVIDERS: ATTEND Internal Medicine
DX: Z00.00 Encounter for general adult medical examination without abnormal findings (principal)
CPT/HCPCS: 36415; 80053; 80061; 81003; 82306; 82607; 84443-TC; 84550-TC; 85025; 87086

== ENCOUNTER 2021-03-02 14:02 | Emergency (ER) | payer OTHER, MEDICAID ==
[~2021-03-02] VITALS: Ht 193 cm; Wt 97.1 kg
[2021-03-02 14:02] VITALS: BP_SYST 129
--- NOTE | 2021-03-02 14:05 | NUR ---
Patient triaged and placed in waiting room. VSS and patient appears in no acute distress at this time. Accompanied by self, awaiting available bed, and MD notified of need for MSE. PT SPEAKING FULL SENTENCES, NO DISTRESS.
--- NOTE | 2021-03-02 14:10 | NUR ---
Pt brought by self, A&Ox4, pt present to ER with with SOB since today, pt states Hx of asthma , skin pink and warm, cap refill <3, VSS, respirations even and unlabored, will cont to monitor.
--- NOTE | 2021-03-02 14:15 | NUR ---
Dr Bowden evaluating patient at this time.
--- NOTE | 2021-03-02 14:28 | NUR ---
BROUGHT BACK TO BED #3 AND TRIAGED. REPORT GIVEN TO ANIYA
[2021-03-02] MEDS ORDERED: predniSONE 20 MG TABLET PO ONE (14:45)
[2021-03-02] MEDS ORDERED: IPRATROPIUM/ALBUTEROL SULFATE 3 ML AMPUL.NEB (DUONEB) INH ONE (14:45)
[2021-03-02] MEDS ORDERED: IPRATROPIUM/ALBUTEROL SULFATE 3 ML AMPUL.NEB (DUONEB) ONE (14:52)
[2021-03-02 14:55] LABS: BASOPHILS # (AUTO) 0.1 K/uL (0.0-0.2); BASOPHILS % (AUTO) 1.1 % (0.0-2.0); EOSINOPHILS # (AUTO) 0.8 K/uL (0.0-0.4); EOSINOPHILS % (AUTO) 10.6 % (0.0-4.0); HEMATOCRIT 43.3 % (36-54); HEMOGLOBIN 14.5 g/dL (14.0-18.0); LYMPHOCYTES # (AUTO) 1.9 K/uL (1.0-5.5); LYMPHOCYTES % (AUTO) 25.5 % (20.5-51.5); MEAN CORPUSCULAR HEMOGLOBIN 31 pg (27-31); MEAN CORPUSCULAR HGB CONC 34 % (32-36); MEAN CORPUSCULAR VOLUME 91 fL (79.0-98.0); MONOCYTES # (AUTO) 0.6 K/uL (0.0-1.0); MONOCYTES % (AUTO) 8.6 % (1.7-9.3); NEUTROPHILS # (AUTO) 3.9 K/uL (1.8-7.7); NEUTROPHILS % (AUTO) 54.2 % (40.0-70.0); PLATELET COUNT (AUTO) 246 K/uL (130-430); RED BLOOD CELL COUNT(AUTO) 4.75 MIL/uL (4.2-6.2); RED CELL DISTRIBUTION WIDTH 12.5 % (9.0-15.0); WHITE BLOOD COUNT (AUTO) 7.3 K/uL (4.8-10.8)
[2021-03-02 15:08] LABS: ANION GAP 7 (5-15); CALCIUM 8.6 mg/dL (8.4-11.0); CHLORIDE 104 mmol/L (98-107); CREATININE 1.79 mg/dL (0.55-1.30); GLUCOSE 109 mg/dL (70-99); POTASSIUM 3.9 mmol/L (3.5-5.1); SODIUM SERUM 139 mmol/L (136-145); UREA NITROGEN, BLOOD 16 mg/dL (8-21)
[2021-03-02 15:13] LABS: GFR AFRICAN AMERICAN 55 mL/min (>90); PROTHROMBIN TIME 10.3 SECS (9.5-12.5)
[2021-03-02 15:16] LABS: ALANINE AMINOTRANSFERASE 38 U/L (12-78); ALBUMIN 3.6 g/dL (3.4-4.8); ASPARTATE AMINOTRANSFERASE 27 U/L (10-37); BILIRUBIN,DIRECT 0.1 mg/dL (0.0-0.3); LIPASE 66 U/L (73-393); TOTAL BILIRUBIN 0.8 mg/dL (0.0-1.0)
[2021-03-02] MEDS ORDERED: ALBMDI INH (15:27)
[2021-03-02] MEDS ORDERED: PRED20TA PO (15:27)
[2021-03-02 15:41] VITALS: BP_SYST 129
--- NOTE | 2021-03-02 15:41 | NUR ---
Patient given written and verbal discharge instructions and verbalizes understanding. ER MD discussed with patient the results and treatment provided. Patient in stable condition. ID arm band removed. Rx of Albuterol and prednisone given. Patient educated on pain management and to follow up with PMD. Pain Scale 0/10. Opportunity for questions provided and answered. Medication side effect fact sheet provided.
== END 2021-03-02 15:41 | disposition home or self-care (01) ==
LOC: SED 14:02
DX: J45.901 Unspecified asthma with (acute) exacerbation (principal); Z79.899 Other long term (current) drug therapy
CPT/HCPCS: 36415; 71046; 80048; 80076; 83690; 83880; 84484; 85025; 85610; 93005; 94640; 99285; J7512